=== PATIENT | male | born 1990 | race Caucasian/White ===

== ENCOUNTER 2022-06-26 17:12 | Emergency (ER) | payer BC ==
[~2022-06-26] VITALS: Ht 182.9 cm; Wt 81.6 kg
[2022-06-26 17:15] VITALS: BP_SYST 137
--- NOTE | 2022-06-26 17:17 | NUR ---
Patient triaged and placed in waiting room. VSS and patient appears in no acute distress at this time. Accompanied by SIGNIFICANT OTHER, awaiting available bed, and MD notified of need for MSE.
--- NOTE | 2022-06-26 17:24 | NUR ---
PT PLACED IN RM 7 AND REPORT GIVEN TO NAKUL SOSA
--- NOTE | 2022-06-26 17:28 | NUR ---
Pt bib sister from home. Pt is NV past 48 hours, with diarhhea for 2 weeks. Pt hyperventilating with RA 98% oxygen saturation. Pt calming measures of warm blanket, and sister bedside. Pt relieved, aaox3, Pt denies Past medical history, pt denies SOB denies Chest pain.
[2022-06-26] MEDS ORDERED: HALOPERIDOL LACTATE 5 MG/ML VIAL IM ONE (17:30)
--- NOTE | 2022-06-26 17:44 | NUR ---
Pt taken to radiology via [facility].
[2022-06-26 17:52] LABS: BASOPHILS # (AUTO) 0.1 K/uL (0.0-0.2); BASOPHILS % (AUTO) 0.6 % (0.0-2.0); EOSINOPHILS # (AUTO) 0.1 K/uL (0.0-0.4); EOSINOPHILS % (AUTO) 1.4 % (0.0-4.0); HEMATOCRIT 46.3 % (36-54); LYMPHOCYTES # (AUTO) 2.8 K/uL (1.0-5.5); LYMPHOCYTES % (AUTO) 30.7 % (20.5-51.5); MEAN CORPUSCULAR HEMOGLOBIN 29 pg (27-31); MEAN CORPUSCULAR HGB CONC 35 % (32-36); MEAN CORPUSCULAR VOLUME 85 fL (79.0-98.0); MONOCYTES # (AUTO) 1.2 K/uL (0.0-1.0); MONOCYTES % (AUTO) 12.9 % (1.7-9.3); NEUTROPHILS % (AUTO) 54.4 % (40.0-70.0); PLATELET COUNT (AUTO) 324 K/uL (130-430); RED BLOOD CELL COUNT(AUTO) 5.43 MIL/uL (4.2-6.2); RED CELL DISTRIBUTION WIDTH 14.1 % (9.0-15.0); WHITE BLOOD COUNT (AUTO) 9.1 K/uL (4.8-10.8)
[2022-06-26 18:08] LABS: ANION GAP 14 (5-15); CALCIUM 9.9 mg/dL (8.4-11.0); CHLORIDE 97 mmol/L (98-107); CREATININE 1.32 mg/dL (0.55-1.30); GFR AFRICAN AMERICAN 80 mL/min (>90); GLUCOSE 119 mg/dL (70-99); UREA NITROGEN, BLOOD 18 mg/dL (8-21)
[2022-06-26 18:10] LABS: ALANINE AMINOTRANSFERASE 30 U/L (12-78); ALBUMIN 4.4 g/dL (3.4-4.8); AMYLASE 22 U/L (0-100); ASPARTATE AMINOTRANSFERASE 18 U/L (10-37); C-REACTIVE PROTEIN QUANT 7.5 mg/dL (0-0.5); LIPASE 36 U/L (73-393); TOTAL BILIRUBIN 0.9 mg/dL (0.0-1.0)
[2022-06-26 18:45] LABS: ACETONE, SERUM NEGATIVE (NEGATIVE)
--- NOTE | 2022-06-26 18:57 | NUR ---
ER at bedside examining patient.
--- NOTE | 2022-06-26 19:06 | NUR ---
Pt asleep in bed without complaint, vital signs stable.
--- NOTE | 2022-06-26 19:17 | NUR ---
Report given to Lincoln SOSA
[2022-06-26] MEDS ORDERED: ONDA8TAB60 PO (19:29)
--- NOTE | 2022-06-26 19:45 | NUR ---
pt is alert and oriented with his at the bed side
--- NOTE | 2022-06-26 19:46 | NUR ---
Patient given written and verbal discharge instructions and verbalizes understanding. ER MD discussed with patient the results and treatment provided. Patient in stable condition. ID arm band removed. Rx of zofran given. Patient educated on pain management and to follow up with PMD. no pain noted, 0/10. Opportunity for questions provided and answered. Medication side effect fact sheet provided.
[2022-06-26 20:25] VITALS: BP_SYST 120
== END 2022-06-26 20:25 | disposition home or self-care (01) ==
LOC: SED 17:12
DX: R11.2 Nausea with vomiting, unspecified (principal); R10.13 Epigastric pain; R19.7 Diarrhea, unspecified; F12.90 Cannabis use, unspecified, uncomplicated; Z79.899 Other long term (current) drug therapy
CPT/HCPCS: 99285; 74176; 80053; 82009; 82150; 83690; 85025; 86140; 84484; 36415; 76376; 96372; 83605; J1630